=== PATIENT | female | born 1985 | race Hispanic/Latino ===

== ENCOUNTER 2018-07-17 15:54 | Emergency (ER) | payer BC | END 2018-07-17 17:43 | disposition home or self-care (01) | LOC: EDH 15:54 | DX: O9A.211 Injury, poisoning and certain other consequences of external causes complicating pregnancy, first trimester (principal); S80.811A Abrasion, right lower leg, initial encounter; M54.5 Low back pain; Z3A.01 Less than 8 weeks gestation of pregnancy; E07.9 Disorder of thyroid, unspecified; V04.99XA Pedestrian with other conveyance injured in collision with heavy transport vehicle or bus, unspecified whether traffic or nontraffic accident, initial encounter; Y93.89 Activity, other specified; Y92.481 Parking lot as the place of occurrence of the external cause; Y99.8 Other external cause status | CPT/HCPCS: 36415; 81025; 84702 ==